=== PATIENT | male | born 1975 | race Two or more races ===

== ENCOUNTER 2016-08-07 13:57 | Emergency (ER) | payer OTHER ==
[~2016-08-07] VITALS: Ht 177.8 cm; Wt 93.0 kg
--- NOTE | 2016-08-07 13:57 | NUR ---
PT AMBULATORY TO ER BED 06. C/O LT SIDED CHEST PAIN R/T LUE SINCE LAST NIGHT DESCRIBING IT NUMB AND WEAK. GOWNED AND PLACED ON MONITOR. STABLE VITALS. AWAITING MD ORDONEZ.
--- NOTE | 2016-08-07 14:00 | NUR ---
iv line started blood drawn and sent to lab.
--- NOTE | 2016-08-07 14:29 | NUR ---
DR JAEGER AT BEDSIDE FOR EVAL.
--- NOTE | 2016-08-07 14:42 | NUR ---
RADIOLOGY AT BEDSIDE FOR CHEST XRAY.
[2016-08-07 14:50] LABS: BASOPHILS % (AUTO) 0.3 % (0.0-2.0); EOSINOPHILS # (AUTO) 0.1 /CMM (0.0-0.7); EOSINOPHILS % (AUTO) 1.8 % (0.0-6.0); HEMATOCRIT 43 % (39-51); HEMOGLOBIN 14.7 g/dL (13.5-17.5); LYMPHOCYTES # (AUTO) 2.7 /CMM (0.8-4.8); LYMPHOCYTES % (AUTO) 33.5 % (20.0-44.0); MEAN CORPUSCULAR HEMOGLOBIN 30 PG (26.0-33.0); MEAN CORPUSCULAR HGB CONC 34 g/dl (31.0-36.0); MEAN CORPUSCULAR VOLUME 89 fL (80-96); MONOCYTES # (AUTO) 0.7 /CMM (0.1-1.30); MONOCYTES % (AUTO) 9.2 % (2.0-12.0); NEUTROPHILS # (AUTO) 4.5 /CMM (1.8-8.9); NEUTROPHILS % (AUTO) 55.2 % (43.0-81.0); PLATELET COUNT (AUTO) 280 /CMM (150-450); RDW COEFFICIENT OF VARIATION 12.8 (11.5-15.0); RED BLOOD CELL COUNT(AUTO) 4.87 MIL/uL (4.5-6.0); WHITE BLOOD COUNT (AUTO) 8.2 K/uL (4.3-11.0)
[2016-08-07 14:59] LABS: CALCIUM, SERUM 9.3 mg/dL (8.5-10.1); CARBON DIOXIDE 28 mmol/L (21-32); CHLORIDE 103 mmol/L (98-107); CREATININE 0.9 mg/dL (0.6-1.3); GFR 94 mL/min (>60); GLUCOSE 95 mg/dL (74-106); POTASSIUM 3.8 mmol/L (3.5-5.1); SODIUM SERUM 141 mmol/L (136-145); UREA NITROGEN, BLOOD 10 mg/dL (7-18)
[2016-08-07 15:08] LABS: TROPONIN I < 0.017 ng/mL (0.00-0.056)
[2016-08-07] MEDS ORDERED: LORAZEPAM 1 MG TABLET ONE (15:22)
[2016-08-07 15:23] LABS: INR 0.94 (0.87-1.13)
[2016-08-07] MEDS ORDERED: LORAZEPAM 1 MG TABLET PO ONE (15:30)
--- NOTE | 2016-08-07 15:52 | NUR ---
Patient discharged to home in stable condition. Written and verbal after care instructions given. Patient verbalizes understanding of instruction.IV removed. Catheter intact and site benign. Pressure and 4x4 applied to site. No bleeding noted.
[2016-08-07 15:53] VITALS: BP 128/77
== END 2016-08-07 15:54 | disposition home or self-care (01) ==
LOC: ER 14:01
DX: R20.9 Unspecified disturbances of skin sensation (principal); R07.9 Chest pain, unspecified; F17.200 Nicotine dependence, unspecified, uncomplicated
CPT/HCPCS: 36415; 71010; 80048; 83735; 84484; 85025; 85730; 93005; 99285; A4606; Z7610

== ENCOUNTER 2017-08-15 02:13 | Emergency (ER) | payer BC, OTHER ==
[~2017-08-15] VITALS: Ht 177.8 cm; Wt 93.0 kg
[2017-08-15 03:09] VITALS: BP 136/77
[2017-08-15] MEDS ORDERED: LIDOCAINE VISCOUS 2% UD 15 ML UDC ONE (03:44)
[2017-08-15] MEDS ORDERED: IBUPROFEN 400 MG TABLET ONE (03:44)
[2017-08-15] MEDS ORDERED: LIDOCAINE VISCOUS 2% UD 15 ML UDC PO ONE (04:00)
[2017-08-15] MEDS ORDERED: IBUPROFEN 400 MG TABLET PO ONE (04:00)
== END 2017-08-15 03:54 | disposition home or self-care (01) ==
LOC: ER 02:18
DX: R09.89 Other specified symptoms and signs involving the circulatory and respiratory systems (principal); F41.9 Anxiety disorder, unspecified; F17.200 Nicotine dependence, unspecified, uncomplicated
CPT/HCPCS: A4606; Z7610